=== PATIENT | female | born 1985 | race Caucasian/White ===

== ENCOUNTER → 2020-05-09 | Outpatient (CLI) | payer BC ==
[~2020-05-09] MED LIST: OXYC-325 PO
== END ==
LOC: LAB 13:06
PROVIDERS: ATTEND Obstetrics & Gynecology
DX: Z01.812 Encounter for preprocedural laboratory examination (principal); Z20.828 Contact with and (suspected) exposure to other viral communicable diseases
CPT/HCPCS: U0003

== ENCOUNTER 2020-05-12 06:01 | Day surgery (SDC) | payer BC ==
[~2020-05-12 06:01] MED LIST changes: +BUPIVACAINE-EPI 0.25%-1:200000 MPF 30 ML VIAL. INJ ONE; -OXYC-325 PO
[2020-05-12] MEDS ORDERED: LIDOCAINE 2% PF 5 ML VIAL. ONE (06:49)
[2020-05-12] MEDS ORDERED: PROPOFOL 10 MG/ML (20ML) VIAL. IV ONE ×2 (06:49→08:04)
[2020-05-12] MEDS ORDERED: ROCURONIUM 50 MG/5 ML VIAL. ONE (06:50)
[2020-05-12] MEDS ORDERED: ONDANSETRON PF 4 MG/2 ML VIAL. ONE ×2 (06:50→07:54)
[2020-05-12] MEDS ORDERED: fentaNYL PF VIAL 100 MCG/2 ML VIAL IV PRN ×2 (07:00)
[2020-05-12] MEDS ORDERED: ONDANSETRON PF 4 MG/2 ML VIAL. IV PRN (07:00)
[2020-05-12] MEDS ORDERED: IV RINGERS,LACTATED 1000ML 1,000 ML IV SCH (07:00)
[2020-05-12] MEDS ORDERED: LIDOCAINE 1% PF 2 ML VIAL. ID PRN (07:00)
[2020-05-12] MEDS ORDERED: HYDROmorphone 2 MG/ML VIAL IV PRN (07:00)
[2020-05-12] MEDS ORDERED: MORPHINE SULFATE 2 MG/ML VIAL. IV PRN (07:00)
[2020-05-12] MEDS ORDERED: PROCHLORPERAZINE 10 MG/2 ML VIAL. IV PRN (07:00)
[2020-05-12] MEDS ORDERED: SUCCINYLCHOLINE 200 MG/10 ML VIAL. ONE (07:24)
[2020-05-12] MEDS ORDERED: fentaNYL PF VIAL 100 MCG/2 ML VIAL ONE ×2 (07:25→08:15)
[2020-05-12] MEDS ORDERED: MIDAZOLAM HCL/PF 2 MG/2 ML VIAL. ONE (07:27)
[2020-05-12] MEDS ORDERED: DEXAMETHASONE SOD PHOS 4 MG/ML VIAL ONE (07:54)
[2020-05-12] MEDS ORDERED: NEOSTIGMINE METHYLSULFATE 5 MG/5 ML SYRINGE. ONE (08:09)
[2020-05-12] MEDS ORDERED: KETOROLAC 30 MG/ML VIAL. ONE (08:09)
[2020-05-12] MEDS ORDERED: GLYCOPYRROLATE 1 MG/5 ML VIAL. ONE (08:09)
[2020-05-12] MEDS ORDERED: SEVOFLURANE 31 TO 60 MINUTES. IH ONE (08:10)
--- NOTE | 2020-05-12 08:23 | PDOC ---
BRIEF OPERATIVE NOTE Date: May 12, 2020 Pre-Op Diagnosis Sterilization Post-Op Diagnosis SAme Procedure Performed 1. LPSC BTL 2. IUD Removal Surgeon Dr. Paula Anesthesia Type: General Blood Loss 5 ml Specimens Obtained IUD, pedro pablo. fallopian tubes Findings nml size uterus, nml fallopian tubes pedro pablo., and nml ovaries pedro pablo. Complications none Operative Note see dictation VIOLA PAULA Jr, MD May 12, 2020 08:23
--- NOTE | 2020-05-12 08:25 | DISCH ---
DISCHARGE INSTRUCTIONS Condition on Discharge Condition on Discharge: Stable Activity After Discharge Activity Instructions for Disc: Activity as tolerated Lifting Instructions after Dis: No heavy lifting Driving Instructions after Dis: Do not drive today Diet after Discharge Diet after Discharge: Regular Contacting the DRSarah after DC Call your doctor for: Concerns you may have Follow-Up Follow up with: Dr. Paula in 1 week VIOLA PAULA Jr, MD May 12, 2020 08:24
--- NOTE | 2020-05-12 09:36 | OP ---
DATE OF SURGERY: 05/12/2020 PREOPERATIVE DIAGNOSIS: Sterilization. POSTOPERATIVE DIAGNOSIS: Sterilization. PROCEDURES: 1. Laparoscopic BTL. 2. IUD removal. SURGEON: [place] Paula MD ANESTHESIA: General. ESTIMATED BLOOD LOSS: 5 mL. COMPLICATIONS: None. FINDINGS: Normal size uterus. IUD. Normal fallopian tubes and ovaries bilaterally. SUMMARY: A 35-year-old female who desired permanent sterilization as well as removal of IUD. She was counseled on the risks, benefits and expectations as well as the failure rate of tubal ligation and voiced clear understanding to proceed. DESCRIPTION OF PROCEDURE: The patient was taken to surgery suite and placed in dorsal lithotomy position where she was prepped with Betadine solution for vaginal prep and ChloraPrep for abdominal prep. After adequate anesthesia, bivalve speculum was placed vaginally. The anterior lip of the cervix grasped with single tooth tenaculum. The IUD was removed with ring forceps. The [employer] uterine manipulator was then placed. The bivalve speculum was removed. Attention was now placed on abdomen. Small transverse skin incision was made just below the umbilicus with a scalpel. The Veress needle was then placed through the infraumbilical incision site. The abdomen was allowed to insufflate up to 1-1/2 liters CO2 gas. The Veress needle was then removed, 5 mm trocar was placed. The scope was positioned. Uterus appeared normal sized. Fallopian tubes and ovaries appeared normal bilaterally. Two additional incisions made in the left lower quadrant through which 5 mm and an 8 mm trocars were placed. With aid of Tom graspers, the right fallopian tube was coagulated and dissected with EnSeal device and removed from the right adnexa. Same process took place with left adnexa. The pedicles were hemostatic. The trocars were then removed under direct visualization. The abdomen was allowed to deflate as much as possible along with mechanical manipulation. The three skin incisions were reapproximated using 4-0 Vicryl suture in subcuticular manner. A 0.25% Marcaine with epinephrine was injected at each incision site. Uterine acorn manipulator and single tooth tenaculum were then removed. The patient tolerated the procedure well and was taken to recovery room in stable condition. Sponge and needle count correct x 3. VIOLA PAULA MD DR: HARLEEN/delaney JOB#: [id number] / [id number]
[2020-05-12] MEDS ORDERED: OXYC-325 PO (09:38)
[2020-05-12 09:45] VITALS: BP 107/69
--- NOTE | 2020-05-19 13:13 | PATHOLOGY ---
[facility] Accession Number: [id number] . 01 Material submitted: . PART A: fallopian tube - BILATERAL TUBES. Modifiers: bilateral PART B: body - IUD . 01 Clinical history: . DESIRES STERILIZATION . 02 Diagnosis: A. 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 - Negative for malignancy. . B. Uterus, IUD removal (Gross Only): - Intrauterine device. . (JOSE ALBERTO:iglesia; 05/16/2020) MBR 05/19/2020 1207 Local . 02 Electronically signed: . Chelsie Beebe MD, Pathologist NPI- [id number] . 01 Gross description: . A. The specimen is received in formalin, labeled "Mercedes Weber, bilateral tubes". Received are two fimbriated fallopian tubes measuring 4.3 and 6.0 cm in length, with an average diameter of 0.5 cm. One fallopian tube is differentially inked black. Sectioning reveals pinpoint to patent lumens. Broaching Machine Repairer sections from each segment are submitted in cassette A1. . B. The specimen is received fresh, labeled "Mercedes Weber, IUD". Received is a T-shaped IUD measuring 3.6 cm in length by 3.3 cm in width. A gross photograph is taken. Sections are not submitted. (CAA; 05/13/2020) QAC/QA 05/13/2020 1247 Local . 02 Pathologist provided ICD-10: Z30.2, Z30.432 . 02 CPT . 925615, 516189 Specimen Comment: A courtesy copy of this report has been sent to [phone] Specimen Comment: [phone] Specimen Comment: Report sent to / Performed at: [address] [facility] [address], [place], [place] [id number] MD Tal Hernandez MD Phone: [phone] Performed at: 02 [facility] [address] [address], [place], [place] [id number] MD Chaz Wang MD Phone: [phone]
== END 2020-05-12 09:51 | disposition home or self-care (01) ==
LOC: SURG 06:01
PROVIDERS: ATTEND Obstetrics & Gynecology
DX: Z30.2 Encounter for sterilization (principal); Z30.432 Encounter for removal of intrauterine contraceptive device
CPT/HCPCS: 58301; 58670; 81025; A7015; J0330; J1100; J1885; J2405; J2704; J2710; J3010; J3490; J2250

== ENCOUNTER 2021-03-23 06:17 | Observation (INO) | payer BC ==
[~2021-03-23] VITALS: Ht 165.1 cm; Wt 86.0 kg
[2021-03-23] VITALS (11 sets, daily range): BP systolic 112–158; BP diastolic 63–95
[~2021-03-23 06:17] MED LIST changes: -BUPIVACAINE-EPI 0.25%-1:200000 MPF 30 ML VIAL. INJ ONE; +HYDROmorphone 2 MG/ML VIAL IVP PRN; +IV RINGERS,LACTATED 1000ML 1,000 ML IV SCH; +OXYC-325 PO; +PROCHLORPERAZINE 10 MG/2 ML VIAL. IVP PRN; +fentaNYL PF VIAL 100 MCG/2 ML VIAL IVP PRN
[2021-03-23 06:54] LABS: BASO % 1 % (0-3); EOS # 0.2 x10^3/uL (0.0-0.7); EOS % 2 % (0-3); HEMOGLOBIN 12.2 g/dL (12.0-15.5); LYMPH # 1.2 x10^3/uL (1.0-4.8); LYMPH % 17 % (24-48); MEAN CORPUSCULAR HEMOGLOBIN 30 pg (25-35); MEAN CORPUSCULAR HGB CONC 34 g/dL (31-37); MEAN CORPUSCULAR VOLUME 88 fL (79-100); MONO # 0.6 x10^3/uL (0.0-1.1); MONO % 8 % (0-9); NEUT # 5.2 x10^3/uL (1.8-7.7); NEUT % 72 % (31-73); PLATELET COUNT 255 x10^3/uL (140-400); RED BLOOD COUNT 4.09 x10^6/uL (3.50-5.40); RED CELL DISTRIBUTION WIDTH 14.7 % (11.5-14.5); WHITE BLOOD COUNT 7.2 x10^3/uL (4.0-11.0)
[2021-03-23] MEDS ORDERED: LIDOCAINE 1%/EPI 1:100,000 20 ML VIAL. ONE (07:45)
[2021-03-23] MEDS ORDERED: INDIGOTINDISULFONATE SODIUM 40 MG/5 ML AMPUL. ONE (07:46)
[2021-03-23] MEDS ORDERED: LIDOCAINE 2% PF 5 ML VIAL. ONE (07:59)
[2021-03-23] MEDS ORDERED: fentaNYL PF VIAL 250 MCG/5 ML VIAL ONE (07:59)
[2021-03-23] MEDS ORDERED: MIDAZOLAM HCL/PF 2 MG/2 ML VIAL. ONE (07:59)
[2021-03-23] MEDS ORDERED: PROPOFOL 10 MG/ML (20ML) VIAL. IV ONE (07:59)
[2021-03-23] MEDS ORDERED: ONDANSETRON PF 4 MG/2 ML VIAL. ONE (08:53)
[2021-03-23] MEDS ORDERED: SEVOFLURANE 61 TO 120 MINUTES. IH ONE (08:53)
[2021-03-23] MEDS ORDERED: DEXAMETHASONE SOD PHOS 4 MG/ML VIAL ONE (08:53)
[2021-03-23] MEDS ORDERED: KETOROLAC 30 MG/ML VIAL. ONE (09:19)
--- NOTE | 2021-03-23 09:35 | PDOC ---
BRIEF OPERATIVE NOTE Date: Mar 23, 2021 Pre-Op Diagnosis 1. Dysmenorrhea 2. Menorrhagia Post-Op Diagnosis Same Procedure Performed TVH Surgeon Dr. Paula Newspaper Deliverer Herbarium Worker: Cornell Anesthesia Type: General Blood Loss 50 ml Specimens Obtained cervix and uterus Findings enlarged uterus, nml ovaries pedro pablo. Complications none Operative Note see dictation VIOLA PAULA Jr, MD Mar 23, 2021 09:35
--- NOTE | 2021-03-23 09:43 | OP ---
DATE OF SURGERY: 03/23/2021 PREOPERATIVE DIAGNOSES: 1. Dysmenorrhea. 2. Menorrhagia. POSTOPERATIVE DIAGNOSES: 1. Dysmenorrhea. 2. Menorrhagia. PROCEDURE: TVH. SURGEON: Carlos Paula MD SCIENTIFIC INFORMATICS LEADER: Cornell. ANESTHESIA: GETA. ESTIMATED BLOOD LOSS: 50 mL. COMPLICATIONS: None. FINDINGS: Enlarged uterus, normal ovaries bilaterally. COMPLICATIONS: None. SUMMARY: A 35-year-old with long history of menorrhagia and dysmenorrhea, unresponsive to medical treatment requiring surgical management in form of hysterectomy. She was counseled on the risks, benefits and expectations of a transvaginal hysterectomy and voiced clear understanding to proceed. DESCRIPTION OF PROCEDURE: The patient was taken to surgery suite and placed in dorsal lithotomy position, was prepped with Betadine solution and draped in sterile fashion. After adequate anesthesia, weighted speculum and curved Sandeep placed vaginally. The cervix was then grasped with Mathew clamps on the anterior and posterior lip of the cervix. The cervix was then injected with 1% lidocaine with epinephrine in a circumferential manner. Bovie cautery was utilized to circumscribe the cervix. The vaginal mucosa was dissected away from the lower uterine segment using moist Ray-Janice. Curved Bob clamps were placed on the parametrial tissue bilaterally. The parametrial tissue was cut and suture ligated with 2-0 Vicryl suture. The posterior cul-de-sac was entered sharply with curved Pretty scissors. The uterosacral ligaments were then clamped bilaterally, cut and suture ligated. Cardinal ligaments clamped bilaterally, cut and suture ligated. Anterior cul-de-sac was entered sharply with Metzenbaum scissors. The uterus was then retroverted. The round ligament, uteroovarian pedicles were clamped bilaterally, cut, and suture ligated. The uterus and cervix were then removed. The uteroovarian pedicles and round ligaments were suture ligated with 2-0 Vicryl suture. The fallopian tubes appeared to be removed from previous surgery of her tubal ligation previously. At this time, a modified Bill's culdoplasty was performed incorporating the uterosacral ligaments bilaterally. The remainder of the vaginal cuff was reapproximated using 2-0 Vicryl suture in [id number] manner. Moist vaginal packing was placed. Hernadez catheter was then placed through this to clear yellow urine. The patient tolerated the procedure well and was taken to recovery room in stable condition. Sponge and needle count correct x 3. DESHAUN DR: Tom TID: [id number]
[2021-03-23] MEDS ORDERED: ZOLPIDEM 5 MG TABLET. PO PRN (09:45)
[2021-03-23] MEDS ORDERED: PROCHLORPERAZINE 10 MG/2 ML VIAL. IV PRN (09:45)
[2021-03-23] MEDS ORDERED: oxyCODONE/APAP 5/325 1 TAB TABLET PO PRN (09:45)
[2021-03-23] MEDS ORDERED: diphenhydrAMINE 50 MG/ML VIAL IV PRN (09:45)
[2021-03-23] MEDS ORDERED: ONDANSETRON PF 4 MG/2 ML VIAL. IV PRN (09:45)
[2021-03-23] MEDS ORDERED: diphenhydrAMINE HCL 25 MG CAPSULE PO PRN (09:45)
[2021-03-23] MEDS ORDERED: CALCIUM CARBONATE 500 MG TAB.CHEW PO PRN (09:45)
[2021-03-23] MEDS ORDERED: 0.9 % SODIUM CHLORIDE 10 ML DISP.SYRIN. IV PRN (09:45)
[2021-03-23] MEDS ORDERED: DEXTROSE 50% 25 GM / 50ML DISP.SYRIN. IV PRN (09:45)
[2021-03-23] MEDS ORDERED: OPIUM/BELLADONNA 30/16.2MG SUPP.RECT. PR PRN (09:45)
[2021-03-23] MEDS ORDERED: fentaNYL PF VIAL 100 MCG/2 ML VIAL ONE (09:50)
[2021-03-23] MEDS: fentaNYL PF VIAL 100 MCG/2 ML VIAL IVP PRN ×2 (10:00→10:08)
[2021-03-23] MEDS ORDERED: MORPHINE SULFATE 2 MG/ML INJ. ONE (10:31)
[2021-03-23] MEDS: MORPHINE SULFATE 2 MG/ML INJ. IVP PRN ×2 (10:35→10:57)
[2021-03-23] MEDS ORDERED: fentaNYL PF VIAL 100 MCG/2 ML VIAL IVP PRN (12:00)
[2021-03-23] MEDS: KETOROLAC 30 MG/ML VIAL. IV PRN ×2 (14:06→19:46)
[2021-03-23] MEDS: GABAPENTIN 300 MG CAPSULE. PO SCH ×2 (14:06→22:03)
--- NOTE | 2021-03-23 14:52 | NUR ---
RN removes packing, pt. tolerates procedure well, reports instant relief of pain/ pressure. RN continues to monitor bleeding.
[2021-03-24] MEDS: KETOROLAC 30 MG/ML VIAL. IV PRN (01:58)
[2021-03-24 02:00] VITALS: BP 117/72
[2021-03-24] MEDS: GABAPENTIN 300 MG CAPSULE. PO SCH ×2 (05:56→14:00)
[2021-03-24 06:19] VITALS: BP 119/83
[2021-03-24 07:14] LABS: BASO % 0 % (0-3); EOS % 0 % (0-3); HEMATOCRIT 33.8 % (36.0-47.0); HEMOGLOBIN 11.6 g/dL (12.0-15.5); LYMPH # 1.7 x10^3/uL (1.0-4.8); LYMPH % 24 % (24-48); MEAN CORPUSCULAR HEMOGLOBIN 31 pg (25-35); MEAN CORPUSCULAR HGB CONC 34 g/dL (31-37); MEAN CORPUSCULAR VOLUME 89 fL (79-100); MONO # 0.7 x10^3/uL (0.0-1.1); MONO % 10 % (0-9); NEUT # 4.7 x10^3/uL (1.8-7.7); NEUT % 65 % (31-73); PLATELET COUNT 235 x10^3/uL (140-400); RED BLOOD COUNT 3.78 x10^6/uL (3.50-5.40); RED CELL DISTRIBUTION WIDTH 14.5 % (11.5-14.5); WHITE BLOOD COUNT 7.3 x10^3/uL (4.0-11.0)
[2021-03-24] MEDS: SIMETHICONE 80 MG TAB.CHEW PO PRN ×2 (11:15→13:08)
--- NOTE | 2021-03-24 13:36 | PDOC ---
SURGICAL PROGRESS NOTE DATE: 03/24/21 TIME: 13:34 Subjective Pt. feeling well. No complaints. Pain controlled, ambulating and voiding without difficulty. Vital Signs Vital Signs Date Time Temp Pulse Resp B/P (MAP) Pulse Ox O2 Delivery O2 Flow Rate FiO2 03/24/21 07:50 Room Air 03/24/21 06:19 98.1 81 18 119/83 (95) 97 98.1 03/23/21 18:19 6.0 I&O Intake and Output 03/24/21 07:00 Intake Total 3800 ml Output Total 3360 ml Balance 440 ml Intake Oral 750 ml IV Total 3050 ml Output Urine Total 3310 ml Estimated Blood Loss 50 ml General: Alert, Oriented X3, Cooperative HEENT: Atraumatic Lungs: Clear to auscultation Heart: Regular rate Abdomen: Normal bowel sounds, Soft, No tenderness Psych/Mental Status: Mental status NL Labs Laboratory Tests Test 03/23/21 05:48 03/23/21 06:30 03/24/21 07:00 Bedside Urine HCG, Qualitative Hcg negative (Negative) White Blood Count 7.2 x10^3/uL (4.0-11.0) 7.3 x10^3/uL (4.0-11.0) Red Blood Count 4.09 x10^6/uL (3.50-5.40) 3.78 x10^6/uL (3.50-5.40) Hemoglobin 12.2 g/dL (12.0-15.5) 11.6 g/dL (12.0-15.5) Hematocrit 36.0 % (36.0-47.0) 33.8 % (36.0-47.0) Mean Corpuscular Volume 88 fL (79-100) 89 fL (79-100) Mean Corpuscular Hemoglobin 30 pg (25-35) 31 pg (25-35) Mean Corpuscular Hemoglobin Concent 34 g/dL (31-37) 34 g/dL (31-37) Red Cell Distribution Width 14.7 % (11.5-14.5) 14.5 % (11.5-14.5) Platelet Count 255 x10^3/uL (140-400) 235 x10^3/uL (140-400) Neutrophils (%) (Auto) 72 % (31-73) 65 % (31-73) Lymphocytes (%) (Auto) 17 % (24-48) 24 % (24-48) Monocytes (%) (Auto) 8 % (0-9) 10 % (0-9) Eosinophils (%) (Auto) 2 % (0-3) 0 % (0-3) Basophils (%) (Auto) 1 % (0-3) 0 % (0-3) Neutrophils # (Auto) 5.2 x10^3/uL (1.8-7.7) 4.7 x10^3/uL (1.8-7.7) Lymphocytes # (Auto) 1.2 x10^3/uL (1.0-4.8) 1.7 x10^3/uL (1.0-4.8) Monocytes # (Auto) 0.6 x10^3/uL (0.0-1.1) 0.7 x10^3/uL (0.0-1.1) Eosinophils # (Auto) 0.2 x10^3/uL (0.0-0.7) 0.0 x10^3/uL (0.0-0.7) Basophils # (Auto) 0.0 x10^3/uL (0.0-0.2) 0.0 x10^3/uL (0.0-0.2) Laboratory Tests Test 03/24/21 07:00 White Blood Count 7.3 x10^3/uL (4.0-11.0) Red Blood Count 3.78 x10^6/uL (3.50-5.40) Hemoglobin 11.6 g/dL (12.0-15.5) Hematocrit 33.8 % (36.0-47.0) Mean Corpuscular Volume 89 fL (79-100) Mean Corpuscular Hemoglobin 31 pg (25-35) Mean Corpuscular Hemoglobin Concent 34 g/dL (31-37) Red Cell Distribution Width 14.5 % (11.5-14.5) Platelet Count 235 x10^3/uL (140-400) Neutrophils (%) (Auto) 65 % (31-73) Lymphocytes (%) (Auto) 24 % (24-48) Monocytes (%) (Auto) 10 % (0-9) Eosinophils (%) (Auto) 0 % (0-3) Basophils (%) (Auto) 0 % (0-3) Neutrophils # (Auto) 4.7 x10^3/uL (1.8-7.7) Lymphocytes # (Auto) 1.7 x10^3/uL (1.0-4.8) Monocytes # (Auto) 0.7 x10^3/uL (0.0-1.1) Eosinophils # (Auto) 0.0 x10^3/uL (0.0-0.7) Basophils # (Auto) 0.0 x10^3/uL (0.0-0.2) Assessment/Plan A: POD#1 s/p TVH P: D/c home. Justicifation of Admission Dx: Justifications for Admission: Justification of Admission Dx: Yes VIOLA PANDEY Jr, MD Mar 24, 2021 13:35
[2021-03-24] MEDS ORDERED: OXYC-325 PO (13:40)
[2021-03-24] MEDS ORDERED: DOCU-109 PO (13:40)
[2021-03-24] MEDS ORDERED: GABA300C18 PO (13:40)
--- NOTE | 2021-03-24 13:41 | DISCH ---
DISCHARGE INSTRUCTIONS Condition on Discharge Condition on Discharge: Stable Activity After Discharge Activity Instructions for Disc: Activity as tolerated Lifting Instructions after Dis: No heavy lifting Driving Instructions after Dis: Do not drive today Diet after Discharge Diet after Discharge: Regular Contacting the DRSarah after DC Call your doctor for: Concerns you may have Follow-Up Follow up with: Dr. Paula in 2 wks VIOLA PAULA Jr, MD Mar 24, 2021 13:41
[2021-03-24] MEDS ORDERED: IBUPROFEN 400 MG TABLET. PO ONE (14:30)
--- NOTE | 2021-03-24 17:07 | PATHOLOGY ---
[facility] Accession Number: [id number] . 01 Material submitted: . uterus - CERVIX AND UTERUS . 01 Clinical history: . DYSMENORRHEA VAGINAL HYSTERECTOMY . 02 Diagnosis: Uterus, vaginal hysterectomy: - Adenomyosis, uterine corpus, sub-basal, focal, with mild myometrial hypertrophy (uterine weight 137 grams). - Chronic cervicitis with focal squamous metaplasia. - Nabothian cysts, cervix, few. - Early secretory endometrium. (JPM:iglesia; 03/24/2021) [facility] 03/24/2021 1600 Local . 02 Comment: There is no atypia or evidence of malignancy. (JPM:iglesia; 03/24/2021) . 02 Electronically signed: . Felipe Elizondo MD, Pathologist NPI- [id number] . 01 Gross description: . Fixative: Formalin Labeled: Cervix, uterus Specimen received: A previously opened uterus with attached cervix without bilateral adnexa Uterus weight: 137 g Uterus: 8.5 cm from fundus to cervix, 5.7 cm from cornu to cornu, and 4.5 cm from anterior to posterior. Serosa: Hernandez and smooth Ectocervix: White, focally hemorrhagic, smooth and glistening Cervical os: Slitlike, measuring 1.1 cm Endocervical canal: 2.5 x 0.7 cm Endometrial cavity: 4.5 x 3.0 cm Endometrial thickness: 0.2 cm Myometrial thickness: 2.0 cm Lesions/abnormalities: Multiple smooth-walled, clear mucus filled cysts are identified within the cervix . . Pharmacy Intake Coordinator sections are submitted as follows: A1 12:00 cervix with cyst A2 6:00 cervix A3 anterior endomyometrium A4 posterior endomyometrium (MRF; 03/23/2021) MFE/MFE 03/23/2021 202 Local . 02 Pathologist provided ICD-10: N80.0, N72, N87.9, N88.8, N85.2 . 02 CPT . 730206 Specimen Comment: A courtesy copy of this report has been sent to [phone] Specimen Comment: Report sent to Performed at: 01 [facility] [address] [place] [address] [address], [place] [id number] MD Tal Hernandez MD Phone: [phone] Performed at: 02 [facility] [place] [address] [place], [place] [id number] MD Felipe Elizondo MD Phone: [phone]
== END 2021-03-24 15:00 | disposition home or self-care (01) ==
LOC: SURG 06:17 → 3 SO LND 09:45
PROVIDERS: ADMIT Obstetrics & Gynecology; ATTEND Obstetrics & Gynecology
DX: N94.6 Dysmenorrhea, unspecified (principal); N92.0 Excessive and frequent menstruation with regular cycle; N85.2 Hypertrophy of uterus
CPT/HCPCS: 36415; 58260; 81025; 85025; 86850; 86900; 86901; 88307; 96374; 96375; 96376; A4314; A4930; G0378; J0690; J0780; J1100; J1885; J2270; J2405; J2704; J3010; J3490; G0379; J2250